=== PATIENT | male | born 1965 | race Caucasian/White ===

== ENCOUNTER → 2018-04-13 | Outpatient (CLI) | payer OTHER | LOC: COL.RAD 09:03 | DX: S73.192A Other sprain of left hip, initial encounter (principal); M16.12 Unilateral primary osteoarthritis, left hip | CPT/HCPCS: A9585; Q9967 ==

== ENCOUNTER 2020-10-24 07:49 | Day surgery (SDC) | payer OTHER ==
[~2020-10-24] VITALS: Ht 175.3 cm; Wt 92.0 kg
[2020-10-24] MEDS ORDERED: CALCIPOTRIENE0.0051 TP (08:25)
[2020-10-24 08:26] VITALS: BP 116/78; PULSE 67; TEMP 97.8
[2020-10-24 09:35] VITALS: BP 99/80; PULSE 67; TEMP 97.6
--- NOTE | 2020-10-24 09:35 | NUR ---
PATIENT BROUGHT BACK TO [facility] VIA CART. AMBULATED TO CHAIR WITHOUT DIFFICULTY. PLACED ON MONITORS, VITAL SIGNS STABLE. PATIENT DENIES PAIN OR NAUSEA. AT BEDSIDE. REPORT RECIEVED FROM ELLA NGUYEN. PATIENT REQUESTS JUICE AND WATER AT THIS TIME. CALL RICHARDSON WITHIN REACH, WILL CONTINUE TO MONITOR.
[2020-10-24 09:50] VITALS: BP 111/92; PULSE 56
--- NOTE | 2020-10-24 09:50 | NUR ---
PATIENT TOLERATING DRINKS WITHOUT DIFFICULTY. DR. TORRES AT BEDSIDE TO DISCUSS RESULTS.
[2020-10-24 10:05] VITALS: BP 122/94; PULSE 54
--- NOTE | 2020-10-24 10:05 | NUR ---
PATIENT STATES HE FEELS WELL AND IS READY TO GO HOME. IV REMOVED, TOLERATED WITHOUT DIFFICULTY. PATIENT TO GET DRESSED AT THIS TIME. DISCHARGE INSTRUCTIONS REVIEWED AND SIGNED WITH PATIENT AND . ALL QUESTIONS ANSWERED.
--- NOTE | 2020-10-24 10:20 | NUR ---
PATIENT BROUGHT DOWN TO LOBBY VIA WHEEL CHAIR. TO DRIVE PATIENT HOME. ALL BELONGINGS IN HAND.
== END 2020-10-24 10:20 | disposition home or self-care (01) ==
LOC: SDCO 07:49
DX: Z12.11 Encounter for screening for malignant neoplasm of colon (principal); K64.0 First degree hemorrhoids; D12.2 Benign neoplasm of ascending colon; D12.3 Benign neoplasm of transverse colon; D12.5 Benign neoplasm of sigmoid colon; K63.5 Polyp of colon; G47.33 Obstructive sleep apnea (adult) (pediatric); F17.210 Nicotine dependence, cigarettes, uncomplicated; Z90.89 Acquired absence of other organs
CPT/HCPCS: J2704

== ENCOUNTER 2024-02-17 11:42 | Day surgery (SDC) | payer OTHER ==
[~2024-02-17] VITALS: Ht 175.3 cm; Wt 97.4 kg
[~2024-02-17 11:42] MED LIST: CALCIPOTRIENE0.0051 TP; LR 1,000 ML IV SCH; Ondansetron 4 MG/2 ML VIAL IV PRN
[2024-02-17 11:58] VITALS: BP 136/97; PULSE 52; TEMP 98.2
[2024-02-17] MEDS ORDERED: Lidocaine PF 2% (20 MG/ML) 5 ML VIAL ONE (12:52)
[2024-02-17 13:35] VITALS: BP 109/80; PULSE 59; TEMP 98.1
[2024-02-17 13:45] VITALS: BP 113/90; PULSE 56
--- NOTE | 2024-02-17 14:10 | NUR ---
1335 - PATIENT RETURNS FROM PROCEDURE AT THIS TIME ACCOMPANIED BY ENDO STAFF. ESCORTED TO CHAIR FROM CART WITH 2 PERSON ASSIST. PATIENT DENIES PAIN OR DISCOMFORT AT THIS TIME. 1340 - DR. TORRES HERE TO DISCUSS PROCEDURE WITH PATIENT AT THIS TIME AND . PATIENT TOLERATING PO AT THIS TIME. 1355 - PATIENT GIVEN DISCHARGE INSTRUCTIONS AND DISCHARGE PAPERWORK AT THIS TIME. HE VERBALIZES UNDERSTANDING OF MATERIAL. IV REMOVED FROM RIGHT HAND AND PATIENT IS EDUCATED TO GET DRESSED TO STREET CLOTHES AT THIS TIME. 1400 - PATIENT ESCORTED TO HOME BOUND VEHICLE VIA WHEELCHAIR. IS DRIVING. PERSONAL BELONGINGS TAKEN AT THIS TIME.
== END 2024-02-17 14:00 | disposition home or self-care (01) ==
LOC: SDCO 11:42
DX: Z12.11 Encounter for screening for malignant neoplasm of colon (principal); D12.3 Benign neoplasm of transverse colon; K62.1 Rectal polyp; G47.33 Obstructive sleep apnea (adult) (pediatric); Z87.19 Personal history of other diseases of the digestive system; Z80.0 Family history of malignant neoplasm of digestive organs
CPT/HCPCS: J2704; J7120